=== PATIENT | female | born 1995 | race Caucasian/White ===

== ENCOUNTER 2022-12-16 08:34 | Outpatient (CLI) | payer OTHER, SELFPAY ==
[2022-12-16 09:13] LABS: HCG Qualitative* Negative (Negative)
== END 2022-12-16 08:35 | disposition home or self-care (01) ==
LOC: OP CLINIC 08:35
PROVIDERS: PCP Emergency Medicine; Visit Provider Surgery
DX: K92.1 Melena (principal); K64.8 Other hemorrhoids
CPT/HCPCS: 45378; 84703; J2250; J3010